=== PATIENT | female | born 1960 | race Caucasian/White ===

== ENCOUNTER 2017-11-18 11:02 | Day surgery (SDC) | payer BC ==
[~2017-11-18] VITALS: Ht 167.6 cm; Wt 77.1 kg
[~2017-11-18 11:02] MED LIST: AMOXICILLIN/CL875 MG OR; AMOXICILLIN/CL875 MG PO; AUGMENTIN875TAB PO; BACTRIM DS1 TAB PO; BL VIT B-12100 MCG PO; COZAAR25 MG PO; KETOROLAC60 MG/2 ML IJ; LEVOTHROID88 MCG PO; LISINOPRIL10 MG PO; MACRODANTIN100 MG PO; MACRODANTIN50 MG PO; MEDDOSEPAK PO; METOPROL TAR25 MG PO; PRILOSEC20 MG OR; TOBRAMYCIN0.3 % OS; WOMENS MULTIVIT1 TAB PO; XANAX0.25 MG OR; [UNRECOGNIZED DRUG - OTHER] PO
[2017-11-18 14:45] VITALS: BP 165/77
== END 2017-11-18 14:55 | disposition home or self-care (01) | DRG 951 ==
LOC: ENDO 11:02
PROVIDERS: ATTEND Internal Medicine Gastroenterology
PROC: 0DJD8ZZ Inspection of Lower Intestinal Tract, Via Natural or Artificial Opening Endoscopic (ICD-10-PCS; principal; 2017-11-18)
DX: Z12.11 Encounter for screening for malignant neoplasm of colon (principal); B18.2 Chronic viral hepatitis C; K64.4 Residual hemorrhoidal skin tags; K64.8 Other hemorrhoids; K21.9 Gastro-esophageal reflux disease without esophagitis; I10 Essential (primary) hypertension; E03.9 Hypothyroidism, unspecified

== ENCOUNTER 2020-08-17 10:37 | Emergency (ER) | payer BC ==
[~2020-08-17] VITALS: Ht 167.6 cm; Wt 77.0 kg
[2020-08-17 12:36] LABS: HEMATOCRIT 41.3 % (37.0-47.0); IMMATURE GRANULOCYTES 0.4 % (0.0-5.0); MEAN CORPUSCULAR HGB 31.5 pG CALC (26.0-32.0); MEAN CORPUSCULAR HGB CONC 33.9 g/dL CAL (32.0-36.0); NEUT# 7.89 thou/uL (2.00-7.15); RED BLOOD COUNT 4.44 mill/uL (4.20-5.60); RED CELL DISTRI WIDTH 13.4 % (11.5-15.5)
[2020-08-17 12:50] LABS: ALBUMIN 4.8 g/dL (3.2-5.0); ALKALINE PHOSPHATASE 68 u/l (38-126); ANION GAP 14 (6-22 (CALC)); BUN 14 mg/dL (7-17); BUN/CREATININE RATIO 17 (12-20 (CALC)); CARBON DIOXIDE 21 mmol/l (22-30); CHLORIDE 100 mmol/l (95-108); CREATININE 0.8 mg/dL (0.5-1.0); GFR > 60 ML/MIN (>=60 (CALC)); GFR FOR AFR.AMER. > 60 ML/MIN (>=60 (CALC)); POTASSIUM 4.5 mmol/l (3.5-5.1); SGOT/AST 36 u/l (14-36); SODIUM 130 mmol/l (137-146); TOTAL PROTEIN 8.5 g/dL (6.3-8.2)
[2020-08-17 12:51] LABS: BILIRUBIN, TOTAL 0.5 mg/dL (0.0-1.4)
[2020-08-17 14:39] LABS: URINE BILIRUBIN - DIPSTICK NEGATIVE (NEGATIVE); URINE BLOOD DIPSTICK NEGATIVE (NEGATIVE); URINE COLOR YELLOW; URINE GLUCOSE - DIPSTICK NEGATIVE (NEGATIVE); URINE KETONE TRACE mg/dL (NEGATIVE); URINE PROTEIN - DIPSTICK NEGATIVE (NEG-TRACE); URINE UROBILINOGEN - DIPSTICK 0.2 E.U./dL (0.2)
[2020-08-17 14:42] LABS: URINE LEUK ESTERASE SMALL (NEGATIVE); URINE NITRITE - DIPSTICK POSITIVE (Negative)
[2020-08-17] MEDS ORDERED: KEFLEX500 M1 PO (14:48)
[2020-08-17 14:49] LABS: URINE BACTERIA MANY hpf; URINE SQUAMOUS EPITHELIAL CELL FEW EPI/hpf (0-FEW)
[2020-08-17 16:04] VITALS: BP 156/65
--- NOTE | 2020-08-19 11:03 | NUR ---
Urine culture from 08/17/20 shows E. coli resistant to cefazolin and susceptible to ceftazidime. Patient was called and notified to discontinue rx for cephalaxein 500 mg and to pick up operator new rx called into [facility] for cefdinir 300 mg BID for 10 days. Pt verbalized understanding on the phone.
== END 2020-08-17 16:04 | disposition home or self-care (01) | DRG 690 ==
LOC: ED 10:37
PROVIDERS: Student in an Organized Health Care Education/Training Program
DX: N12 Tubulo-interstitial nephritis, not specified as acute or chronic (principal); B96.20 Unspecified Escherichia coli [E. coli] as the cause of diseases classified elsewhere; I10 Essential (primary) hypertension; E03.9 Hypothyroidism, unspecified
CPT/HCPCS: Q9967